=== PATIENT | male | born 1970 | race Asian ===

== ENCOUNTER 2016-09-08 07:52 | Emergency (ER) | payer BC ==
[~2016-09-08] VITALS: Ht 172.7 cm; Wt 104.5 kg
[2016-09-08 07:55] VITALS: Ht 172.7 cm; Wt 104.5 kg
[2016-09-08 08:43] LABS: URINE BILIRUBIN (Dip) NEGATIVE (NEGATIVE); URINE BLOOD (Dip) TRACE (NEGATIVE); URINE COLOR YELLOW (YELLOW); URINE KETONES (Dip) NEGATIVE (NEGATIVE); URINE LEUKOCYTE ESTERASE (Dip) NEGATIVE (NEGATIVE); URINE NITRITE (Dip) NEGATIVE (NEGATIVE); URINE UROBILINOGEN (Dip) 0.2 E.U./dL (0.1-1.0)
[2016-09-08] MEDS ORDERED: morphine 4 MG/ML VIAL IV STA (08:50)
[2016-09-08] MEDS ORDERED: ONDANSETRON 4 MG INJ IV STA (08:50)
[2016-09-08 08:53] LABS: ADD UMIC YES
[2016-09-08 08:54] LABS: URINE TOTAL PROTEIN (Dip) TRACE (NEGATIVE)
[2016-09-08 09:04] LABS: ADD SCAN DIFF NO
[2016-09-08 09:14] LABS: ALBUMIN 4.6 g/dl (3.3-4.9); MUCUS,URINE MODERATE; POTASSIUM 3.5 mmol/L (3.5-5.1); URINE RBCS 0-2 /HPF (0)
[2016-09-08 09:16] LABS: CREATININE 1.16 mg/dl (0.61-1.24)
[2016-09-08 09:17] LABS: ALBUMIN/GLOBULIN RATIO 1.24; BILIRUBIN,INDIRECT 0.7 mg/dl (0-1.1); BILIRUBIN,TOTAL 0.7 mg/dl (0.2-1.3); CALCIUM 8.9 mg/dl (8.4-10.2); TOTAL PROTEIN 8.3 g/dl (6.1-8.1)
[2016-09-08 09:25] LABS: BASOPHIL # 0.1 10^3/ul (0.0-0.1); BASOPHILS % 0.9 % (0.0-2.0); EOSINOPHILS # 0.5 10^3/ul (0.0-0.5); EOSINOPHILS % 7.5 % (0.0-7.0); HEMATOCRIT 48.8 % (42.0-52.0); HEMOGLOBIN 16.2 g/dl (14.0-18.0); MEAN CORPUSCULAR HGB CONC 33.2 g/dl (32.0-37.0); MEAN CORPUSCULAR VOLUME 87.5 fl (82.0-101.0); MEAN PLATELET VOLUME 10.7 fl (7.4-10.4); MONOCYTE # 0.5 10^3/ul (0.3-0.9); MONOCYTES % 6.8 % (0.0-11.0); NEUTROPHIL # 3.9 10^3/ul (1.6-7.5); NEUTROPHILS % 55.5 % (39.0-77.0); PLATELET COUNT 229 10^3/UL (140-415); RED BLOOD COUNT 5.58 10^6/ul (4.70-6.10); RED CELL DISTRIBUTION WIDTH 12.7 % (11.5-14.5)
--- NOTE | 2016-09-08 09:31 | RADRPT ---
PROCEDURE: XR Chest AP portable CLINICAL INDICATION: Chest pain TECHNIQUE: An AP portable radiograph of the chest was submitted. COMPARISON: None. FINDINGS: Support Hardware: None Cardiovascular: The cardiovascular silhouette appears unremarkable. Lung Gomez: The lung gomez appear clear with no nodule, alveolar infiltrate, or interstitial promi nence evident. Pleural Spaces: No pneumothorax or pleural effusion is identified. Osseous Structures: The osseous structures appear intact. Soft Tissues: The soft tissues appear generous. IMPRESSION: Unremarkable portable chest. Physician Nate Date Time Electronically viewed and signed by Jeane Weeks Physician on 09/08/2016 09:31 /
--- NOTE | 2016-09-08 09:43 | RADRPT ---
PROCEDURE: US Abdominal Aorta. CLINICAL INDICATION: AAA screening. TECHNIQUE: Transabdominal ultrasound of the aorta was performed with sagittal and transverse imagi ng as well as color and Doppler interrogation. COMPARISON: None available FINDINGS: Proximal aorta: 1.5 x 2.1 cm in AP and transverse dimension. Mid aorta: 1.5 x 2.1 cm in AP and transverse dimension. Distal aorta: 0.8 x 1.2 cm in AP and transverse dimension. The proximal iliac arteries are normal in caliber. No significant calcified plaque is identified. IMPRESSION: 1. No aneurysm involving the abdominal aorta or iliac arteries. RPTAT: EE .Cristo Stern MD, MD Date Time Electronically viewed and signed by .Cristo Stern MD, MD on 09/08/2016 09:46 .C/
--- NOTE | 2016-09-08 10:42 | RADRPT ---
PROCEDURE: XR Lumbar Spine. CLINICAL INDICATION: Low back pain. TECHNIQUE: Three views of the lumbar spine are available for review COMPARISON: None available FINDINGS: The normal lumbar lordosis is preserved. Alignment is intact. No acute fracture or dislocation is seen. The vertebral body heights are all normal. There are multilevel mild degenerative changes of lumbar spine, most pronounced at L5-S1. IMPRESSION: 1. No acute fracture or dislocation. 2. Multilevel mild degenerative changes of lumbar spine, most pronounced at L5-S1. RPTAT: HH .Yung Church MD, Date Time Electronically viewed and signed by .Yung Church MD, on 09/08/2016 10:41 .N/
[2016-09-08] MEDS ORDERED: IBUP-1542 PO (10:53)
--- NOTE | 2016-09-08 11:07 | ERD ---
ER Documentation Chief Complaint Date/Time DATE: 09/08/16 TIME: 10:54 Chief Complaint 8/10 lower back pain x 2 weeks HPI Patient is a 46-year-old male who presents to the emergency department with with epigastric pain which is radiating to his lower back 2 weeks. Patient states that his pain is worse when lying down. Patient states the pain is also worse when sitting up in bed. Patient describes pain to be sharp and stabbing in nature. Patient denies any fevers, chills, nausea, vomiting, lower abdominal pain, pain with urination. Patient denies any anesthesia, urinary incontinence, stool incontinence, night pain or recent trauma or falls. Patient denies any heavy lifting. Patient denies eating any spicy foods, fried foods, NSAIDs. ROS All systems reviewed and are negative except as per history of present illness. Medications Home Meds Active Scripts Ibuprofen* (Motrin*) 600 Mg Tab, 600 MG PO Q6, #30 TAB Prov:ISMAEL AMIN PA-C 09/08/16 Allergies Allergies: Coded Allergies: No Known Allergy (Unverified , 09/08/16) PMhx/Soc Medical and Surgical Hx: pt denies Medical Hx, pt denies Surgical Hx FmHx Family History: No diabetes Physical Exam Vitals Vital Signs Date Time Temp Pulse Resp B/P Pulse Ox O2 Delivery O2 Flow Rate FiO2 09/08/16 07:55 98.6 83 18 124/83 98 Physical Exam GENERAL: Well-developed, well-nourished male. Appears in no acute distress. HEAD: Normocephalic, atraumatic. EYES: Pupils are equally reactive bilaterally. EOMs grossly intact. No conjunctival erythema. ENT: Moist mucous membranes. No uvula deviation. No kissing tonsils. NECK: Supple. No meningismus. Normal range of motion of the neck. LUNG: Clear to auscultation bilaterally. No rhonchi, wheezing, rales or coarse breath sounds. HEART: Regular rate and rhythm. No murmurs, rubs or gallops. ABDOMEN: No scars, ecchymosis or rashes noted. Soft and nondistended. +Tender to palpation in the epigastric region. Positive bowel sounds in all four quadrants. No rebound tenderness, no guarding. (-) McBurney's point tenderness. No CVA tenderness. BACK: No midline tenderness. EXTREMITIES: Equal pulses bilaterally. No peripheral clubbing, cyanosis or edema. No unilateral leg swelling. NEUROLOGIC: Alert and oriented. Moving all four extremities without any difficulty. Normal speech. Steady gait. SKIN: Normal color. Warm and dry. No rashes or lesions. Result Diagram: 09/08/16 0830 09/08/16 0830 Results 24 hrs Laboratory Tests Test 09/08/16 08:30 White Blood Count 7.010^3/ul Red Blood Count 5.5810^6/ul Hemoglobin 16.2g/dl Hematocrit 48.8% Mean Corpuscular Volume 87.5fl Mean Corpuscular Hemoglobin 29.0pg Mean Corpuscular Hemoglobin Concent 33.2g/dl Red Cell Distribution Width 12.7% Platelet Count 48251^3/UL Mean Platelet Volume 10.7fl Neutrophils % 55.5% Lymphocytes % 29.0% Monocytes % 6.8% Eosinophils % 7.5% Basophils % 0.9% Nucleated Red Blood Cells % 0.0/100WBC Neutrophils # 3.910^3/ul Lymphocytes # 2.010^3/ul Monocytes # 0.510^3/ul Eosinophils # 0.510^3/ul Basophils # 0.110^3/ul Nucleated Red Blood Cells # 0.010^3/ul Urine Color YELLOW Urine Clarity CLEAR Urine pH 5.5 Urine Specific [place] >=1.030 Urine Ketones NEGATIVE Urine Nitrite NEGATIVE Urine Bilirubin NEGATIVE Urine Urobilinogen 0.2 E.U./dL Urine Leukocyte Esterase NEGATIVE Urine Microscopic RBC 0-2/HPF Urine Microscopic WBC NONE SEEN/HPF Urine Mucus MODERATE Urine Hemoglobin TRACE Urine Glucose 0.1%% Urine Total Protein TRACE Sodium Level 142mmol/L Potassium Level 3.5mmol/L Chloride Level 101mmol/L Carbon Dioxide Level 27mmol/L Anion Gap 18 Blood Urea Nitrogen 19mg/dl Creatinine 1.16mg/dl Glucose Level 159mg/dl Calcium Level 8.9mg/dl Total Bilirubin 0.7mg/dl Direct Bilirubin 0.00mg/dl Indirect Bilirubin 0.7mg/dl Aspartate Amino Transf (AST/SGOT) 43IU/L Alanine Aminotransferase (ALT/SGPT) 68IU/L Alkaline Phosphatase 90IU/L Troponin I < 0.012ng/ml Total Protein 8.3g/dl Albumin 4.6g/dl Globulin 3.70g/dl Albumin/Globulin Ratio 1.24 Lipase 142U/L Current Medications Medications (Trade) Dose Ordered Sig/Nimisha Route PRN Reason Start Time Stop Time Status Last Admin Dose Admin Morphine Sulfate (morphine) 4 mg ONCE STAT IV 09/08/16 08:50 09/08/16 08:52 DC 09/08/16 09:33 Ondansetron HCl (Zofran Inj) 4 mg ONCE STAT IV 09/08/16 08:50 09/08/16 08:52 DC 09/08/16 09:32 Procedures/MDM ED COURSE: The patient was stable throughout ED course. I kept the patient and/or family informed of laboratory and diagnostic imaging results throughout the ED course. EKG: Read by Dr. Barrera, attending physician. EKG shows normal sinus rhythm at a rate of 76 bpm. No arrhythmias, acute ST elevations or T wave changes were noted. DIAGNOSTIC IMAGING: Read by radiologist. DIAGNOSTIC IMAGING REPORT Patient: AUGUST BENTLEY : 1970 Age: 46 Sex: M MR #: [id number] DOS: 09/08/16 0953 Ordering MD: ISMAEL AMIN PA-C Location: [facility] Room/Bed: PROCEDURE: XR Lumbar Spine. CLINICAL INDICATION: Low back pain. TECHNIQUE: Three views of the lumbar spine are available for review COMPARISON: None available FINDINGS: The normal lumbar lordosis is preserved. Alignment is intact. No acute fracture or dislocation is seen. The vertebral body heights are all normal. There are multilevel mild degenerative changes of lumbar spine, most pronounced at L5-S1. IMPRESSION: 1. No acute fracture or dislocation. 2. Multilevel mild degenerative changes of lumbar spine, most pronounced at L5- S1. RPTAT: HH .Yung Church MD, MD Date Time Electronically viewed and signed by .Yung Church MD, MD on 09/08/2016 10: 41 .N/ CC: ISMAEL AMIN PA-C DIAGNOSTIC IMAGING REPORT Patient: AUGUST BENTLEY : 1970 Age: 46 Sex: M MR #: [id number] DOS: 09/08/16 0000 Ordering MD: ISMAEL AMIN PA-C Location: [facility] Room/Bed: PROCEDURE: XR Chest AP portable CLINICAL INDICATION: Chest pain TECHNIQUE: An AP portable radiograph of the chest was submitted. COMPARISON: None. FINDINGS: Support Hardware: None Cardiovascular: The cardiovascular silhouette appears unremarkable. Lung Chester: The lung chester appear clear with no nodule, alveolar infiltrate, or interstitial prominence evident. Pleural Spaces: No pneumothorax or pleural effusion is identified. Osseous Structures: The osseous structures appear intact. Soft Tissues: The soft tissues appear generous. IMPRESSION: Unremarkable portable chest. Physician Nate Date Time Electronically viewed and signed by Physician Nate on 09/08/2016 09:31 RH/ CC: ISMAEL AMIN PA-C DIAGNOSTIC IMAGING REPORT Patient: AUGUST BENTLEY : 1970 Age: 46 Sex: M MR #: [id number] DOS: 09/08/16 0953 Ordering MD: ISMAEL AMIN PA-C Location: [facility] Room/Bed: PROCEDURE: XR Lumbar Spine. CLINICAL INDICATION: Low back pain. TECHNIQUE: Three views of the lumbar spine are available for review COMPARISON: None available FINDINGS: The normal lumbar lordosis is preserved. Alignment is intact. No acute fracture or dislocation is seen. The vertebral body heights are all normal. There are multilevel mild degenerative changes of lumbar spine, most pronounced at L5-S1. IMPRESSION: 1. No acute fracture or dislocation. 2. Multilevel mild degenerative changes of lumbar spine, most pronounced at L5- S1. RPTAT: HH .Yung Church MD, Date Time Electronically viewed and signed by .Yung Church MD, MD on 09/08/2016 10: 41 .N/ CC: ISMAEL AMIN PA-C MEDICATIONS GIVEN: Morphine, Zofran Patient tolerated medication well with no adverse reactions. Patient reported improvement in pain. MEDICAL DECISION MAKING: This is a 46-year-old male who presents with epigastric pain radiating to his lower back 2 weeks. Patient with the pain was worse with lying down and getting up from bed.. Vital signs were reviewed. Patient is afebrile. CBC showed no evidence of systemic infection or severe anemia. CMP showed no evidence of electrolyte abnormalities, severe acidosis, alkalosis, renal failure , or liver disease. Lipase showed no evidence of acute pancreatitis. UA showed no evidence of acute infection or hematuria. EKG was within normal limits. Chest x-ray was within normal limits. Troponin was negative. Lumbar spine x- rays were negative for acute fracture or dislocation. Lumbar x-rays did show Multilevel mild degenerative changes of lumbar spine, most pronounced at L5-S1. Aorta ultrasound was negative. CXR was unremarkable. At this time, patient's presentation is most consistent with epigastric pain and DJD of the lumbar spine. I have a much lower clinical concern for acute coronary syndrome, AAA, rib fracture, pneumothorax, lower lobe pneumonia, DKA, bowel perforation, cholecystitis, choledocholithiasis, ascending cholangitis, hepatic abscess, pancreatitis, splenic rupture, diverticulitis, UTI, pyelonephritis, nephrolithiasis, appendicitis, constipation. PRESCRIPTIONS: Ibuprofen DISCHARGE: At this time, patient is stable for discharge and outpatient management. Patient provided with a copy of all imaging and blood work of studies obtained today. I have instructed the patient to follow-up with his/her primary care physician in 1-2 days. I have instructed the patient to promptly return to the ER at any time for any new or worsening symptoms including increased pain, nausea, vomiting, diarrhea, fever, weakness or LOC. The patient and/or family expressed understanding of and agreement with this plan. All questions were answered. Home care instructions were provided. Departure Diagnosis: Primary Impression: Degenerative joint disease of spine Spinal region: unspecified Spinal osteoarthritis complication: unspecified spinal osteoarthritis Qualified Code: M47.9 - Osteoarthritis of spine, unspecified spinal osteoarthritis complication status, unspecified spinal region Additional Impression: Epigastric pain Condition: Stable Patient Instructions: Epigastric Pain (Uncertain Cause) Referrals: [facility] YOU HAVE RECEIVED A MEDICAL SCREENING EXAM AND THE RESULTS INDICATE THAT YOU DO NOT HAVE A CONDITION THAT REQUIRES URGENT TREATMENT IN THE EMERGENCY DEPARTMENT. FURTHER EVALUATION AND TREATMENT OF YOUR CONDITION CAN WAIT UNTIL YOU ARE SEEN IN YOUR DOCTORS OFFICE WITHIN THE NEXT 1-2 DAYS. IT IS YOUR RESPONSIBILITY TO MAKE AN APPOINTMENT FOR FOLOW-UP CARE. IF YOU HAVE A PRIMARY DOCTOR --you should call your primary doctor and schedule an appointment IF YOU DO NOT HAVE A PRIMARY DOCTOR YOU CAN CALL OUR PHYSICIAN REFERRAL HOTLINE AT IF YOU CAN NOT AFFORD TO SEE A PHYSICIAN YOU CAN CHOSE FROM THE FOLLOWING [facility] [address] [facility] [facility] [address] [address] [facility] [facility] [address] [facility] [address] [facility] [facility] [address] [facility]. [facility] [address] [place]. [facility] YOU HAVE RECEIVED A MEDICAL SCREENING EXAM AND THE RESULTS INDICATE THAT YOU DO NOT HAVE A CONDITION THAT REQUIRES URGENT TREATMENT IN THE EMERGENCY DEPARTMENT. FURTHER EVALUATION AND TREATMENT OF YOUR CONDITION CAN WAIT UNTIL YOU ARE SEEN IN YOUR DOCTORS OFFICE WITHIN THE NEXT 1-2 DAYS. IT IS YOUR RESPONSIBILITY TO MAKE AN APPOINTMENT FOR FOLOW-UP CARE. IF YOU HAVE A PRIMARY DOCTOR --you should call your primary doctor and schedule and appointment IF YOU DO NOT HAVE A PRIMARY DOCTOR YOU CAN CALL OUR PHYSICIAN REFERRAL HOTLINE AT . IF YOU CAN NOT AFFORD TO SEE A PHYSICIAN YOU CAN CHOSE FROM THE FOLLOWING [facility] INSTITUTIONS: [facility] [address] [place] [address] [facility] [address] [place] [address] [facility] [address] [place] [address] Additional Instructions: Call your primary care doctor TOMORROW for an appointment during the next 1-2 days.See the doctor sooner or return here if your condition worsens before your appointment time. ISMAEL AMIN PA-C Sep 08, 2016 11:05
== END 2016-09-08 11:15 | disposition home or self-care (01) ==
LOC: FTE 07:52
DX: M47.9 Spondylosis, unspecified (principal); R40.2252 Coma scale, best verbal response, oriented, at arrival to emergency department; R10.13 Epigastric pain; R40.2142 Coma scale, eyes open, spontaneous, at arrival to emergency department; R40.2362 Coma scale, best motor response, obeys commands, at arrival to emergency department
CPT/HCPCS: 71010; 72100; 76775; 80053; 81001; 81003; 83690; 84484; 85025; 93005; J2270; J2405; 36415; 96374; 96375